=== PATIENT | male | born 1950 | race Caucasian/White ===

== ENCOUNTER 2016-07-11 22:07 | Observation (INO) | payer OTHER, BC ==
[~2016-07-11] VITALS: Ht 172.7 cm; Wt 97.8 kg
--- NOTE | 2016-07-11 23:53 | ED ORDER SUMMARY ---
..... Patient: KAREN BETTENCOURT OrderSheet [facility] VisitID: [id number] [place], [place] [id number] 66y, M Registration Date/Time: 07/11/2016 ORDER SHEET Weight: 98.4 kg (stated) Allergies: Amoxicillin GENERAL ORDERS: UA-Culture if indicated Urgent (22:27 07/11/2016 DBeyer R.N. verbal order read back to Niki Liriano) (Ack 22:33 SRedmond) (22:59 AMcQuoid ER Tech1) CBC w Diff Urgent (22:47 07/11/2016 DBeyer R.N. per protocol) (Ack 22:48 SRedmond) (23:24 SRedmond) CMP Urgent (22:47 07/11/2016 DBeyer R.N. per protocol) (Ack 22:48 SRedmond) (23:24 SRedmond) PT with INR Urgent (22:47 07/11/2016 DBeyer R.N. per protocol) (Ack 22:48 SRedmond) (23:24 SRedmond) Amylase Urgent (22:47 07/11/2016 DBeyer R.N. per protocol) (Ack 22:48 SRedmond) (Cancelled: Duplicate Order23:04 Niki Liriano) Lipase Urgent (22:47 07/11/2016 DBeyer R.N. per protocol) (Ack 22:48 SRedmond) (23:24 SRedmond) US Abdomen Limited (No) Urgent (23:04 07/11/2016 Niki Liriano) (Ack 23:06 SRedmond) (23:49 RFay) MEDICATION ORDERS: GI Cocktail WHITE PO 30 mL (NOW) (23:14 07/11/2016 Niki Liriano) (23:19 DBeyer R.N.) IV FLUIDS: IV Saline Lock (22:47 07/11/2016 DBeyer R.N. per protocol) (22:57 DBeyer R.N.) Zosyn IV 4.5 gm/100mL (NOW) (23:52 07/11/2016 Niki Liriano) (0:08 DBeyer R.N.) Morphine IV 4 mg (HIGH ALERT MEDICATION, NOW) (00:07 07/12/2016 Riri FloodNAlicia verbal order read back to Niki Liriano) (0:07 Riri Melton) ORDER SHEET NOTES: [Electronically signed by Bhavik Garcia Dr. (07:25 07/12/2016)] [Electronically signed by Nigel Chau R.N. (03:20 07/14/2016)] [Electronically locked/signed by Nigel Chau R.N. (03:07/14/2016)]
--- NOTE | 2016-07-11 23:53 | ED NURSING NOTES ---
Clinical Report - Nurses [facility] [address] [place] [address] 07/11/2016 22:07 Patient: KAREN BETTENCOURT TRIAGE Triage time 22:20 Jul 11 2016. Acuity: LEVEL 3. Chief Complaint: ABDOMINAL PAIN. --22:22 Nigel Chau R.N. 22:20 07/11/16. BP: 145/85. HR: 83. RR: 18. O2 saturation: 96%. Temp: 98.1 F. Pain level now 02/09. --22:22 Nigel Chau R.N. Weight: 98.4 kg stated. Height/Length: 68 inches Per Patient. BMI: 33. --22:21 Nigel Chau R.N. Medications Amlodipine. --00:42 Nigel Chau R.N. Allergies Amoxicillin.(rash) --00:42 Nigel Chau R.N. History Arrived by private vehicle. Onset. (3 months). He has had nausea and constipation. 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 SOCIAL HX: Smoker- current status unknown (smokeless). Alcohol use; consumes beer occasionally. No drug use. --22:22 Nigel Chau R.N. Interventions ID band on patient. To treatment room. --22:22 Nigel Chau R.N. PHYSICAL ASSESSMENT GENERAL / NEURO / PSYCH: Alert. Oriented X 4. Appears in no acute distress. RESPIRATORY: Respirations not labored. Breath sounds within normal limits. CVS: Capillary refill less than 2 seconds. GI / : Abdomen nontender. Rebound tenderness diffusely. SKIN: Skin is warm and dry. --22:23 Nigel Chau R.N. NURSING PROGRESS NOTES Pulse oximeter placed on patient. Patient gowned. Call light placed in reach. Side rails up x 1. --22:23 Nigel Chau R.N. 22:57 07/11/2016 Site #1 started via IV in the right antecubital space with an 20g angiocath, with aseptic technique; one attempt. Blood drawn: rainbow set. Labeled in the presence of the patient and sent to the lab. Saline lock flushed with saline. --22:57 Nigle Chau R.N. 23:10 07/11/16. BP: 152/76. HR: 81. O2 saturation: 96%. --23:11 Nigel Chau R.N. 23:19 07/11/2016 GI COCKTAIL WHITE (Simethicone) PO 30 mL given. Allergies verified and confirmed 5 rights. --23:19 Nigel Chau R.N. 23:57 07/11/2016 Morphine IVP 4 mg given over 2 minute(s) via site #1. Allergies verified, confirmed 5 rights and sedative warning given to the patient. IV patency established. IV site checked: no pain, redness, or swelling. IV flushed thoroughly pre- and post-medication administration. IVP given by RN. --00:07 Nigel Chau R.N. 00:08 07/12/2016 Started 4.5 gm of Zosyn (Piperacillin Sod-Tazobactam So) IVPB in bag #1 120 mL; at 120 mL/hr over 1 hour(s) via site #1 via IV pump. Allergies verified and confirmed 5 rights. IV patency established. IV site checked: no pain, redness, or swelling. IV flushed thoroughly pre- and post-medication administration. --00:08 Nigel Chau R.N. DISPOSITION / DISCHARGE Departure time: 00:18 Jul 12 2016. No learning barriers present. Report was given to a nurse via a phone call. Report included patient's care, treatment, medications, reviewed medication reconcilliation, and condition (including any recent changes or anticipated changes). All questions were answered. Report was acknowledged. --00:19 Nigel Chau R.N. 00:18 07/12/16. BP: 144/75. HR: 65. RR: 18. O2 saturation: 97%. Temp: 98.2 F. Pain level now 4/10. --00:19 Nigel Chau R.N. Patient's personal items include: shirt and pants; items were placed in belongings bag. --00:20 Nigel Chau R.N. Departure time: 20. --00:40 Nigel Chau R.N. Locked/Released at 07/14/2016 3:20 by Nigel Chau R.N.
--- NOTE | 2016-07-11 23:53 | ED ORDER SUMMARY ---
..... Patient: KAREN BETTENCOURT OrderSheet [facility] VisitID: [id number] [place], [place] [id number] 66y, M Registration Date/Time: 07/11/2016 ORDER SHEET Weight: 98.4 kg (stated) Allergies: Amoxicillin GENERAL ORDERS: UA-Culture if indicated Urgent (22:27 07/11/2016 DBeyer R.N. verbal order read back to Niki Liriano) (Ack 22:33 SRedmond) (22:59 AMcQuoid ER Tech1) CBC w Diff Urgent (22:47 07/11/2016 DBeyer R.N. per protocol) (Ack 22:48 SRedmond) (23:24 SRedmond) CMP Urgent (22:47 07/11/2016 DBeyer R.N. per protocol) (Ack 22:48 SRedmond) (23:24 SRedmond) PT with INR Urgent (22:47 07/11/2016 DBeyer R.N. per protocol) (Ack 22:48 SRedmond) (23:24 SRedmond) Amylase Urgent (22:47 07/11/2016 DBeyer R.N. per protocol) (Ack 22:48 SRedmond) (Cancelled: Duplicate Order23:04 Niki Liriano) Lipase Urgent (22:47 07/11/2016 DBeyer R.N. per protocol) (Ack 22:48 SRedmond) (23:24 SRedmond) US Abdomen Limited (No) Urgent (23:04 07/11/2016 Niki Liriano) (Ack 23:06 SRedmond) (23:49 RFay) MEDICATION ORDERS: GI Cocktail WHITE PO 30 mL (NOW) (23:14 07/11/2016 Niki Liriano) (23:19 DBeyer R.N.) IV FLUIDS: IV Saline Lock (22:47 07/11/2016 DBeyer R.N. per protocol) (22:57 DBeyer R.N.) Zosyn IV 4.5 gm/100mL (NOW) (23:52 07/11/2016 Niki Liriano) (0:08 DBeyer R.N.) Morphine IV 4 mg (HIGH ALERT MEDICATION, NOW) (00:07 07/12/2016 Riri FloodNAlicia verbal order read back to Niki Liriano) (0:07 Riri Melton) ORDER SHEET NOTES: [Electronically signed by Bhavik Garcia Dr. (07:25 07/12/2016)] [Electronically signed by Nigel Chau R.N. (03:20 07/14/2016)] [Electronically locked/signed by Nigel Chau R.N. (03:07/14/2016)]
--- NOTE | 2016-07-11 23:53 | ED CLINICAL REPORT ---
Clinical Report - Physicians/Mid Levels [facility] [address] [place] [address] 07/11/2016 22:07 Patient: KAREN BETTENCOURT Time Seen: 2247. Arrived- By private vehicle. Historian- patient. HISTORY OF PRESENT ILLNESS Chief Complaint: ABDOMINAL PAIN. This started today and is still present and worsening. It was abrupt in onset and has been constant but is not gone now. At its maximum, severity described as moderate. When seen in the E.D., severity described as moderate. Modifying factors- worsened by food. Relieved by rest. It is described as sharp. No radiation. It is described as located in the epigastric area. The patient has had nausea. No loss of appetite, vomiting or diarrhea. No additional abdominal pain. (strong family history of gallbladder pathology with the mother and father both having their gallbladders removed.). No recent travel. Similar symptoms previously: Several times. ( Over the past several months). Recent medical care: Not recently seen/assessed. REVIEW OF SYSTEMS No black stools, hematemesis, bloody stools, fever or skin rash. All systems otherwise negative, except as recorded above. PAST HISTORY See nurses notes. SOCIAL HISTORY Never smoker. No alcohol use or drug use. No recent travel. Is a local resident. FAMILY HISTORY History of gall bladder problems. ADDITIONAL NOTES The nursing notes have been reviewed. PHYSICAL EXAM Vital Signs: 07/11/2016 22:20 BP: 145/85. HR: 83. RR: 18. O2 saturation: 96%. Temp: 98.1 F. Oxygen saturation normal. Appearance: Alert. Oriented X3. Patient in mild distress. Eyes: Pupils equal, round and reactive to light. Eyes normal inspection. CVS: Normal heart rate and rhythm. Heart sounds normal. Pulses normal. Respiratory: No respiratory distress. Breath sounds normal. Chest nontender. No rales, rhonchi or wheezes. Abdomen: Soft. Mild tenderness in the epigastric area. Bowel sounds normal. No organomegaly. No mass. (Negative Causey's. No tenderness at McBurney's. No rebound or guarding.). Skin: Skin warm and dry. Normal skin color. No rash. Normal skin turgor. Extremities: Extremities exhibit normal ROM. No lower extremity edema. Neuro: Oriented X 3. No motor deficit. No sensory deficit. LABS, X-RAYS, AND EKG Abdominal Sonogram: Gallstones are present. Gallbladder wall thickening is present. Pericholecystic fluid is present. (Acute cholecystitis). No dilated common duct. The study was independently viewed by me and interpreted contemporaneously by me. Study included the gallbladder. Prior studies were not available for comparison. Laboratory Tests: UA-Culture if indicated: (MORELIA: 07/11/2016 22:16) ( MsgRcvd 07/11/2016 22:43) Final results Test Result Flag Units (Reference) URINE COLOR YELLOW URINE APPEARANCE CLEAR URINE GLUCOSE NEGATIVE (NEGATIVE) URINE BILIRUBIN NEGATIVE (NEGATIVE) URINE KETONE NEGATIVE (NEGATIVE) URINE SPECIFIC GRAVITY 1.025 (1.010-1.030) URINE PH 6.0 (5.0-8.0) URINE PROTEIN NEGATIVE (NEGATIVE) URINE UROBILINOGEN 0.2 EU/dL (0.2-1.0) URINE NITRITE NEGATIVE (NEGATIVE) URINE BLOOD TRACE-INTACT (NEGATIVE) URINE LEUK ESTERASE NEGATIVE (NEGATIVE) URINE RBC 0-1 rbc/hpf (0-1) URINE WBC RARE wbc/hpf (0-1) URINE EPITHELIAL CELLS NONE SEEN EPI/hpf (0-5) URINE BACTERIA NONE SEEN (NONE SEEN) URINE COMMENT CULT NOT INDICATED 1+ MUCUSURINE CULTURES ARE SET-UP BASED ON THE FOLLOWING CRITERIA:POSITIVE NITRITEPOSITIVE LEUKOCYTE ESTERASEGREATER THAN 10 WHITE BLOOD CELLSMODERATE (2+) OR GREATER BACTERIA CBC w Diff: (MORELIA: 07/11/2016 22:53) ( MsgRcvd 07/11/2016 23:04) Final results Test Result Flag Units (Reference) WHITE BLOOD COUNT 12.1 H K/uL (4.5-11.5) RED BLOOD COUNT 5.12 M/uL (4.50-5.90) HEMOGLOBIN 14.4 gm/dL (13.5-17.5) HEMATOCRIT 43.3 % (41.0-53.0) MEAN CELL VOLUME 85 fL (80-100) MEAN CORPUSCULAR HGB 28 pg (26-34) MEAN CORPUSCULAR HGB CONC 33 g/dL (31-37) RED CELL DISTRIBUTION WIDTH 13.0 % (11.6-14.8) PLATELET COUNT 253 K/uL (150-400) NEUTROPHIL % 76.4 H % (50-75) LYMPH % 14.0 L % (25-40) MONO % 8.2 % (3-14) EOSINOPHIL % 1.1 % (0-4) BASOPHIL % 0.3 % (0-2) PT with INR: (MORELIA: 07/11/2016 22:53) ( [facility] 07/11/2016 23:15) Final results Test Result Flag Units (Reference) INR 1.0 (0.8-1.2) Low Intensity Therapy: INR 1.5-2.0 PT range 18.5-23.1Mod.Intensity Therapy: INR 2.0-3.0 PT range 23.1-31.5High Intensity Therapy: INR 2.5-3.5 PT range 27.4-35.5High Intensity Therapy 2: INR 3.0-4.0 PT range 31.5-39.3 CMP: (MORELIA: 07/11/2016 22:53) ( [facility] 07/11/2016 23:22) Final results Test Result Flag Units (Reference) GLUCOSE 150 H mg/dL (70-110) BUN 15 mg/dL (7-18) CREATININE 1.1 mg/dL (0.6-1.3) Estimated GFR >60 mL/min Estimated GFR- >60 mL/min Note: Persistent reduction over 3 months in eGFR<60 mL/min/1.73 m2 defines CKD. Patients with eGFR values>=60 mL/min/1.73 m2 may also have CKD if evidence ofpersistent proteinuria. Additional information may be foundat www.kidney.org. SODIUM 140 mmol/L (136-145) POTASSIUM 3.6 mmol/L (3.5-5.1) CHLORIDE 102 mmol/L (98-107) CARBON DIOXIDE 26 mmol/L (21-32) CALCIUM 9.1 mg/dL (8.5-10.1) TOTAL PROTEIN 8.1 g/dL (6.4-8.2) ALBUMIN 3.7 g/dL (3.3-5.0) BILIRUBIN, TOTAL 0.9 mg/dL (0.0-1.0) ALKALINE PHOSPHATASE 86 U/L (46-116) AST (SGOT) 23 U/L (15-37) ALT (SGPT) 35 U/L (12-78) LIPASE 126 U/L (73-393) AMYLASE 27 U/L (25-115) . Pulse Oximetry: 07/12/2016 00:18 O2 saturation: 97%. 07/11/2016 23:10 O2 saturation: 96%. 07/11/2016 22:20 O2 saturation: 96%. Interpretation: normal. PROGRESS AND PROCEDURES Course of Care: the patient is a pleasant 66-year-old male with no pertinent past medical history presenting for a vaginal epigastric abdominal pain. At this time differential diagnosis includes acute cholecystitis, biliary colic,acute pancreatitis,urinary tract infection,or gastritis. Patient will be given a GI cocktail for possible gastritis. Patient is agreeable to the treatment plan. Ultrasound and laboratory studies have been ordered. Workup was remarkable for ultrasound signs and symptoms that are consistent with acute biliary pathology. Head discussion with patient in regards to hisfindings here in the emergency department. Patient is agreeable to surgicalremoval of the gallbladder. Surgery was contacted. Patient will beadmitted to the hospital. No further recommendations made by general surgery. Antibioticsprovided. Discussed with patient workup, and plan of care as well as diagnosis. All questions have been answered. The patient was admitted. Oli patient's departure from the emergency department he is noted benontoxic in appearance. Patient is stable forfloor placement. Do not feel patient needs intensive care unit level ofplacement. Critical care performed (35 minutes). Time includes: direct patient care, patient reassessment, coordination of patient care, interpretation of data (laboratory data), review of patient's medical records, medical consultation, family consultation regarding treatment decisions and documentation of patient care. Consult obtained. Disposition: Observation in Acute Care. CLINICAL IMPRESSION 07/12/2016 00:18 BP: 144/75. HR: 65. RR: 18. O2 saturation: 97%. Temp: 98.2 F. Oxygen saturation normal. Acute cholecystitis. (Electronically signed by Bhavik Garcia Dr. 07/12/2016 7:25)
--- NOTE | 2016-07-11 23:53 | ED NURSING NOTES ---
Clinical Report - Nurses [facility] [address] [place] [address] 07/11/2016 22:07 Patient: KAREN BETTENCOURT TRIAGE Triage time 22:20 Jul 11 2016. Acuity: LEVEL 3. Chief Complaint: ABDOMINAL PAIN. --22:22 Nigel Chau R.N. 22:20 07/11/16. BP: 145/85. HR: 83. RR: 18. O2 saturation: 96%. Temp: 98.1 F. Pain level now 02/09. --22:22 Nigel Chau R.N. Weight: 98.4 kg stated. Height/Length: 68 inches Per Patient. BMI: 33. --22:21 Nigel Chau R.N. Medications Amlodipine. --00:42 Nigel Chau R.N. Allergies Amoxicillin.(rash) --00:42 Nigel Chau R.N. History Arrived by private vehicle. Onset. (3 months). He has had nausea and constipation. 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 SOCIAL HX: Smoker- current status unknown (smokeless). Alcohol use; consumes beer occasionally. No drug use. --22:22 Nigel Chau R.N. Interventions ID band on patient. To treatment room. --22:22 Nigel Chau R.N. PHYSICAL ASSESSMENT GENERAL / NEURO / PSYCH: Alert. Oriented X 4. Appears in no acute distress. RESPIRATORY: Respirations not labored. Breath sounds within normal limits. CVS: Capillary refill less than 2 seconds. GI / : Abdomen nontender. Rebound tenderness diffusely. SKIN: Skin is warm and dry. --22:23 Nigel Chau R.N. NURSING PROGRESS NOTES Pulse oximeter placed on patient. Patient gowned. Call light placed in reach. Side rails up x 1. --22:23 Nigel Chau R.N. 22:57 07/11/2016 Site #1 started via IV in the right antecubital space with an 20g angiocath, with aseptic technique; one attempt. Blood drawn: rainbow set. Labeled in the presence of the patient and sent to the lab. Saline lock flushed with saline. --22:57 Nigel Chau R.N. 23:10 07/11/16. BP: 152/76. HR: 81. O2 saturation: 96%. --23:11 Nigel Chau R.N. 23:19 07/11/2016 GI COCKTAIL WHITE (Simethicone) PO 30 mL given. Allergies verified and confirmed 5 rights. --23:19 Nigel Chau R.N. 23:57 07/11/2016 Morphine IVP 4 mg given over 2 minute(s) via site #1. Allergies verified, confirmed 5 rights and sedative warning given to the patient. IV patency established. IV site checked: no pain, redness, or swelling. IV flushed thoroughly pre- and post-medication administration. IVP given by RN. --00:07 Nigel Chau R.N. 00:08 07/12/2016 Started 4.5 gm of Zosyn (Piperacillin Sod-Tazobactam So) IVPB in bag #1 120 mL; at 120 mL/hr over 1 hour(s) via site #1 via IV pump. Allergies verified and confirmed 5 rights. IV patency established. IV site checked: no pain, redness, or swelling. IV flushed thoroughly pre- and post-medication administration. --00:08 Nigel Chau R.N. DISPOSITION / DISCHARGE Departure time: 00:18 Jul 12 2016. No learning barriers present. Report was given to a nurse via a phone call. Report included patient's care, treatment, medications, reviewed medication reconcilliation, and condition (including any recent changes or anticipated changes). All questions were answered. Report was acknowledged. --00:19 Nigel Chau R.N. 00:18 07/12/16. BP: 144/75. HR: 65. RR: 18. O2 saturation: 97%. Temp: 98.2 F. Pain level now 4/10. --00:19 Nigel Chau R.N. Patient's personal items include: shirt and pants; items were placed in belongings bag. --00:20 Nigel Chau R.N. Departure time: 20. --00:40 Nigel Chau R.N. Locked/Released at 07/14/2016 3:20 by Nigel Chau R.N.
[2016-07-12] VITALS (12 sets, daily range): BP systolic 103–157; BP diastolic 61–82
--- NOTE | 2016-07-12 00:08 | DIAGNOSTIC IMAGING REPORT ---
PROCEDURE: US ABDOMEN ULTRASOUND-LIMITED INDICATION: EPIGASTRIC ABDO PAIN, initial encounter TECHNIQUE: Udbon scale and color Doppler sonographic images of the abdomen were obtained. COMPARISON: None. FINDINGS: Enlarged gallbladder (10 cm) completely filled with sludge. There are several calculi including some lodged in the neck. Gallbladder wall is difficult to visualize but appears to be second (5.7 mm) associated with pericholecystic fluid and wall hyperemia. There is positive Causey's sign. CBD measures 8.9 mm. The liver measures 17.9 cm with diffuse increased echogenicity. Right kidney measures 11 cm. IMPRESSION: 1. Enlarged gallbladder filled with sludge. There are some gallstones lodged in the neck, associated with inflammatory changes, biliary obstruction and a positive Causey's sign. Findings are consistent with acute cholecystitis. 2. Hepatic steatosis versus intrinsic liver disease.
--- NOTE | 2016-07-12 00:38 | NUR ---
ADMITTED FROM ED PER MAUREEN ACCOMPANIED BY AND STAFF, IV ZOXYN INFUSING TO RAC PERIPHERAL LINE.ABLE TO TRANSFER INDEPENDENTLY TO BED. STATES PAIN 9/10 RUQ SHARP PAIN, DENIES NAUSEA.
[2016-07-12] MEDS ORDERED: AMLODIPINE BESY10 MG PO (01:59)
--- NOTE | 2016-07-12 04:20 | NUR ---
C/O 10/10 SHARP RUQ ABDOMINAL PAIN WITH NAUSEA. PRN MEDS GIVEN.
--- NOTE | 2016-07-12 09:00 | NUR ---
VERY PAINFUL ABD, 02/09. MEDICATED WITH DEMEROL WITH PT ABLE TO FALL ASLEEP FOR A SHORT WHILE. NPO.
--- NOTE | 2016-07-12 11:19 | NUR ---
PT ID AND PROCEDURE CONFIRMED UPON ARIVAL TO THE PREOP AREA. RT ARM TUCKED AT PTS SIDE AND PADDED WITH EGG CRATE FOAM.
--- NOTE | 2016-07-12 12:57 | NUR ---
REC'D FROM OR; SPONT RESP. HOB ELEVATED 30 DEGREES. JEANNIE WITH MOD AMT OF RED DRAINAGE.
--- NOTE | 2016-07-12 13:11 | DIAGNOSTIC IMAGING REPORT ---
PROCEDURE: XR INTRAOPERATIVE LAP SHASHI INDICATION: LAP SHASHI WITH IOC TECHNIQUE: Intraoperative fluoroscopy provided for Dr. Diez performing an intraoperative cholangiogram following cholecystectomy. Total fluoroscopy time 11 seconds. Cumulative dose 5.0 mGy. COMPARISON: Abdominal ultrasound 07/11/2016 FINDINGS: A single intraoperative fluoroscopic spot image of the right upper quadrant of the abdomen demonstrates cannulation of the cystic duct stump and opacification of the intrahepatic and extrahepatic biliary tree. There are no filling defects. There is normal passage of contrast into the duodenum. IMPRESSION: 1. Negative intraoperative cholangiogram.
--- NOTE | 2016-07-12 13:14 | NUR ---
FAMILY VISITING; JEANNIE EMPTIED FOR 20ML OF RED BLOOD. AWAKE AND AWARE.
--- NOTE | 2016-07-12 15:08 | OPERATIVE REPORT ---
DATE OF SURGERY: 07/12/2016 SURGEON: Jaleel Diez III, MD RECORDER HELPER SEISMOGRAPH: None. PREOPERATIVE DIAGNOSIS: 1. Acute cholecystitis, cholelithiasis POSTOPERATIVE DIAGNOSIS: 1. Acute cholecystitis, cholelithiasis (gangrenous cholecystitis) PROCEDURE PERFORMED: 1. Laparoscopic cholecystectomy with fluoroscopic intraoperative cholangiogram ANESTHESIA: TIVA. ESTIMATED BLOOD LOSS: 100 mL. FLUIDS: 700 mL lactated Ringers. PATHOLOGY SPECIMEN: Gallbladder and contents. INDICATIONS: The patient is a 66-year-old male with severe right upper quadrant abdominal pain whose white count was 12.1. Ultrasound: Thickened gallbladder, stones in the neck of the gallbladder. Positive Causey sign on physical examination, and scheduled for urgent surgery. SURGICAL FINDINGS: The patient was noted to have acute gangrenous cholecystitis, cholelithiasis, with a normal intraoperative cholangiogram. Free flow of contrast material into the duodenum. Visualization of hepatic radicles, hepatic duct, and common bile duct, no evidence of retained stone. SURGICAL TECHNIQUE: The patient was brought to the operating room and placed in the dorsal supine position, where he underwent general endotracheal anesthesia by the anesthesiology department. After proper anesthesia had taken effect, the patient 's abdomen was prepped using Betadine and draped in a sterile fashion. An infraumbilical incision was made, carried down through skin and subcutaneous tissue. A Veress needle was inserted through this site, into the abdominal cavity, and after ascertaining its appropriate position with suction irrigation, pneumoperitoneum was obtained using CO2 insufflation to approximately 14-15 mmHg pressure. Once this pressure was reached, the Veress needle was removed and replaced with a 10 mm trocar. The trocar removed, leaving the sleeve behind, through which a laparoscopic video camera was introduced into the abdominal cavity. Under direct visualization, a separate 10 mm trocar was placed in the subxiphoid region, two 5 mm trocars were placed in the right anterolateral abdominal wall, approximately 3-4 fingerbreadths below the costal margin. Each entered the abdominal cavity under direct visualization. The trocars were removed, leaving the sleeves behind, through which laparoscopic instrumentation was introduced into the abdominal cavity. The omentum was firmly adherent to the gallbladder. It was very carefully peeled off the gallbladder. The gallbladder was quite distended and drained percutaneously, allowing us a chance to purchase our grasper onto the gallbladder and retracting it cephalad. We were able then to take further adhesions to the anterior wall of gallbladder down using a combination of blunt dissection and hydrodissection. We were able then to circumferentially isolate the cystic duct using a combination of hydrodissection and blunt dissection. A clip was placed at the junction of the neck of the gallbladder and the cystic duct. A percutaneous cholangiogram catheter was threaded through the anterior abdominal wall. A small incision was made in the anterior surface of the cystic duct, where the percutaneous cholangiogram catheter was threaded into the cystic duct, clipped into position, and a fluoroscopic intraoperative cholangiogram obtained, with the aforementioned findings noted. Once completed, the percutaneous cholangiogram catheter was retrieved from the cystic duct and the abdominal cavity. The distal cystic duct was clipped in continuity. The cystic artery was identified, clipped in continuity, divided, and the gallbladder taken down from its thickened and adherent the gallbladder bed. We were able then to free the gallbladder completely, place it in a sterile specimen container bag and retrieve it from the abdominal cavity and sent it to pathology. The gallbladder bed was inspected for hemostasis. Hemostasis was assured. The right upper quadrant was irrigated copiously with warm normal saline and antibiotic solution and the irrigant suctioned out. A 10 mm Walter-Stevens drain was placed in the area of the bed of the gallbladder and Morison pouch and brought out through our most dependent trocar site and securing it using 3-0 nylon. The gallbladder drain tubing was trimmed to length and attached to a bulb with a suction. The abdominal cavity pneumoperitoneum was released and all trocars were removed from the abdominal cavity. All trocar sites approximated using 4-0 subdermal Polysorb and Steri-Strips. A sterile pressure occlusive dressings was placed over each site. The patient tolerated the procedure well, was extubated and transferred to the recovery room in stable condition. There were no intraoperative or anesthetic complications.
--- NOTE | 2016-07-12 15:54 | CONSULTATION REPORT ---
DATE OF CONSULTATION: 07/12/2016 CHIEF COMPLAINT: 1. Right upper quadrant abdominal pain HISTORY OF PRESENT ILLNESS: The patient is a 66-year-old male who presented to the emergency room, evaluated and admitted to [facility] by Dr. Holt with suspected symptomatic cholelithiasis. I was able to questions the patient, and he was complaining of severe and unrelenting right upper quadrant pain radiating into his back, not associated with nausea and vomiting. The patient had an ultrasound in the emergency department which showed an enlarged gallbladder with stones in the neck of the gallbladder, thickened gallbladder wall, and a positive Causey sign. MEDICAL/SURGICAL HISTORY: The patient is status post L4-5 diskectomy. He has had a neuroma removed, bilateral feet. He has also had surgery for a right plantar fasciitis. He carries a diagnosis of hypertension. MEDICATIONS: 1. Amlodipine 10 mg at bedtime. ALLERGIES: 1. NONE. SOCIAL HISTORY: , 1 daughter alive and well. The patient does not smoke, but he does chew a can of tobacco, 1 every 2 days. Drinks alcohol socially. Does not use recreational drugs. 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 FAMILY HISTORY: Mother at age 64 of myocardial infarction. Father at age 85 of lung cancer. The patient has a sister who is from pancreatic carcinoma. REVIEW OF SYSTEMS: No history of hepatitis, jaundice, rheumatic fever, blood transfusion, heart murmurs requiring antibiotics, bleeding tendencies. The patient's remaining 12-point review of systems is negative. PHYSICAL EXAMINATION: GENERAL: The patient is awake and alert, in [id number] discomfort. He is conversant. VITAL SIGNS: Blood pressure is 131/82, pulse 76, respirations 18, temperature is 98.2. HEENT: Normocephalic, atraumatic. Pupils equal and reactive. No scleral icterus. External auditory canals clear. No nasal septal defect or discharge. Throat is clear. Moist mucous membranes. NECK: Supple. No JVD, carotid bruit or adenopathy. LUNGS: Clear. No rales, rhonchi, or wheezing. HEART: Regular rhythm. No murmurs. ABDOMEN: Nondistended. Hypoactive bowel sounds. The patient is tender in the right upper quadrant, positive Causey sign. EXTREMITIES: Full range of motion. No pretibial ankle edema. LYMPHATICS: No cervical, supraclavicular, axillary, or groin adenopathy. SKIN: Warm and dry with no peripheral cyanosis. NEUROLOGIC: The patient is grossly intact, with no focal motor neurological deficits. LAB/IMAGING: White count 12.1, hemoglobin and hematocrit 14.4 and 43.3 respectively. Electrolytes: Sodium 140, potassium 3.6, chloride 102, bicarbonate 26, glucose 150, BUN 15, creatinine 1.1, total bilirubin 0.9, alkaline phosphatase 86, lipase 126. IMPRESSION: Acute cholecystitis PLAN: Laparoscopic cholecystectomy. The procedure has been explained to the patient and his , who was present, including the potential risk of conversion to open procedure, hemorrhage, transfusion, major ductal damage, retained stone, bile leak, damage to local structures to include small bowel, stomach, damage/transection to the major ductal system, pneumonia, pulmonary embolus. The patient understands and agrees to proceed. At this point, all questions answered to his satisfaction.
--- NOTE | 2016-07-12 17:38 | NUR ---
RETURNED FROM SURGERY THIS AFTERNOON. UP IN CHAIR FROM STRETCHER. PT STATES "SORENESS" 0.5/10. UP AMBULATING IN HALLS. TOLERATING CLEAR LIQUIDS WELL. NO NAUSEA. UMBILICAL DRESSING LEAKING. DRESSING REINFORCED. JEANNIE DRAINGING BLOODY DRAINAGE, SMALL AMOUNTS.
--- NOTE | 2016-07-12 19:47 | NUR ---
SITTING ON BEDSIDE CHAIR STATES DISCOMFORT 1/10 AT THIS TIME, TOLERATING CLEAR LIQUIDS. FAMILY AT BEDSIDE.
--- NOTE | 2016-07-12 20:02 | NUR ---
AMBULATING IN HALLWAY ACCOMPANIED BY FAMILY MEMBERS.
[2016-07-13 02:03] VITALS: BP 100/62
--- NOTE | 2016-07-13 05:13 | NUR ---
ABDOMINAL TROCAR SITES DRESSINGS REMAINS DRY AND INTACT, STATES DISCOMFORT 05/12. VERBALIZED HAVING FLATUS, TOLERATING CLEAR LIQUIDS.
[2016-07-13] MEDS ORDERED: HYCET1 ML PO (06:57)
[2016-07-13 06:59] VITALS: BP 121/65
--- NOTE | 2016-07-13 06:59 | Provider's Discharge Care Plan ---
Problem, Goal, Plan Problem List 1. S/P laparoscopic cholecystectomy Goals: Improve disease control, Therapeutic intervention Instructions: Follow up as directed, Take meds as directed, JEANNIE drain care instructions
--- NOTE | 2016-07-13 09:45 | NUR ---
GAVE PT HIS DISCHARGE INFORMATION AND ANSWERED QUESTIONS TO HIS SATISFACTION. PT WAS GIVEN 1 PRESCRIPTION. IV WAS TAKEN OUT INTACT. PT WAS WALKED DOWN TO PRIVATE VEHICLE BY THIS RN.
--- NOTE | 2016-07-14 03:21 | ED MAR SUMMARY ---
..... Medication Administration Record [facility] [address] [place] [place] [address] Patient: KAREN BETTENCOURT Visit ID: [id number] 66y, M Weight: 98.4 kg Height/Length: 68 in BMI: 33 ALLERGIES: Amoxicillin Given 23:19 07/11/2016 Nigel Chau RAliciaNAlicia Medication Administered: GI COCKTAIL WHITE [PO] (SIMETHICONE), Dose: 30 mL PO. Medication Ordered: GI Cocktail WHITE PO 30 mL (NOW). Given 23:57 07/11/2016 Nigel Chau RAliciaNAlicia Medication Administered: MORPHINE [IVP], Dose: 4 mg IVP over 2 minute(s), Site: #1 right AC. Medication Ordered: Morphine IV 4 mg (HIGH ALERT MEDICATION, NOW). Start 00:08 07/12/2016 Nigel Chau, RAliciaN. Medication Administered: ZOSYN [IVPB] (PIPERACILLIN SOD-TAZOBACTAM SO), Dose: 4.5 gm IVPB over 1 hour(s), Rate: 120 mL/hr, Dispensed: 120 mL bag, Site: #1 right AC. Medication Ordered: Zosyn IV 4.5 gm/100mL (NOW).
--- NOTE | 2016-07-14 03:21 | ED DISCHARGE INSTRUCTIONS ---
Patient: KAREN BETTENCOURT General Instructions [facility] VisitID: [id number] [address] [place] [address] 66y, M Registration Date/Time: 07/11/2016 07/12/2016 00:18 BP: 144/75. HR: 65. RR: 18. O2 saturation: 97%. Temp: 98.2 F. Oxygen saturation normal. Acute cholecystitis. (Electronically signed by Bhavik Garcia Dr. 07/12/2016 7:25)
--- NOTE | 2016-07-14 03:21 | ED MAR SUMMARY ---
..... Medication Administration Record [facility] [address] [place] [address] Patient: KAREN BETTENCOURT Visit ID: [id number] 66y, M Weight: 98.4 kg Height/Length: 68 in BMI: 33 ALLERGIES: Amoxicillin Given 23:19 07/11/2016 Nigel Chau RAliciaNAlicia Medication Administered: GI COCKTAIL WHITE [PO] (SIMETHICONE), Dose: 30 mL PO. Medication Ordered: GI Cocktail WHITE PO 30 mL (NOW). Given 23:57 07/11/2016 Nigel Chau RAliciaNAlicia Medication Administered: MORPHINE [IVP], Dose: 4 mg IVP over 2 minute(s), Site: #1 right AC. Medication Ordered: Morphine IV 4 mg (HIGH ALERT MEDICATION, NOW). Start 00:08 07/12/2016 Nigel Chau, RAliciaN. Medication Administered: ZOSYN [IVPB] (PIPERACILLIN SOD-TAZOBACTAM SO), Dose: 4.5 gm IVPB over 1 hour(s), Rate: 120 mL/hr, Dispensed: 120 mL bag, Site: #1 right AC. Medication Ordered: Zosyn IV 4.5 gm/100mL (NOW).
--- NOTE | 2016-07-14 03:21 | ED DISCHARGE INSTRUCTIONS ---
Patient: KAREN BETTENCOURT General Instructions [facility] VisitID: [id number] [address] [place] [address] 66y, M Registration Date/Time: 07/11/2016 07/12/2016 00:18 BP: 144/75. HR: 65. RR: 18. O2 saturation: 97%. Temp: 98.2 F. Oxygen saturation normal. Acute cholecystitis. (Electronically signed by Bhavik Garcia Dr. 07/12/2016 7:25)
--- NOTE | 2016-07-14 03:21 | ED MED RECONCILIATION SUMMARY ---
Patient: KAREN BETTENCOURT Medication Reconciliation Report [facility] VisitID: [id number] [address] [place] [address] 66y, M Registration Date/Time: 07/11/2016 Weight: 98.4 kg Height/Length: 68 in. BMI: 33.0 ALLERGIES: Amoxicillin The patient's Home Medications are listed below: THE FOLLOWING MEDICATIONS NEED TO BE RECONCILED: Amlodipine The source(s) of the original Home Medication information: Not obtained. The following Medications were given to the patient in the Emergency Department: GI COCKTAIL WHITE [PO] PO 30 mL, administered: 07/11/2016 11:19:00 PM Morphine [IVP] IVP 4 mg, administered: 07/11/2016 11:57:00 PM Zosyn [IVPB] IVPB bolus 0, then 4.5 gm 120 mL/hr, administered: 07/12/2016 12:08:00 AM The following Medications were prescribed to the patient: None.
--- NOTE | 2016-07-14 03:21 | ED MED RECONCILIATION SUMMARY ---
Patient: KAREN BETTENCOURT Medication Reconciliation Report [facility] VisitID: [id number] [address] [place] [address] 66y, M Registration Date/Time: 07/11/2016 Weight: 98.4 kg Height/Length: 68 in. BMI: 33.0 ALLERGIES: Amoxicillin The patient's Home Medications are listed below: THE FOLLOWING MEDICATIONS NEED TO BE RECONCILED: Amlodipine The source(s) of the original Home Medication information: Not obtained. The following Medications were given to the patient in the Emergency Department: GI COCKTAIL WHITE [PO] PO 30 mL, administered: 07/11/2016 11:19:00 PM Morphine [IVP] IVP 4 mg, administered: 07/11/2016 11:57:00 PM Zosyn [IVPB] IVPB bolus 0, then 4.5 gm 120 mL/hr, administered: 07/12/2016 12:08:00 AM The following Medications were prescribed to the patient: None.
== END 2016-07-13 09:50 | disposition home or self-care (01) ==
LOC: ED SRH 22:07 → TRANS SRH 07-12 00:03 → CC SRH 07-12 00:03
PROVIDERS: Specialist; ADMIT Surgery
PROC: BF101ZZ Fluoroscopy of Bile Ducts using Low Osmolar Contrast (ICD-10-PCS; principal; 2016-07-12 11:00)
PROC: 0FT44ZZ Resection of Gallbladder, Percutaneous Endoscopic Approach (ICD-10-PCS; principal; 2016-07-12 11:00)
DX: K80.00 Calculus of gallbladder with acute cholecystitis without obstruction (principal); I10 Essential (primary) hypertension; F17.220 Nicotine dependence, chewing tobacco, uncomplicated
CPT/HCPCS: 29229; 29253; 29259; 29264; 50002; 60001; 70002; 80102; 80248; 80813; 82669; 82794; 82807; 83338; 83339; 83348; 83587; 83920; 83937; 83982; 84038; 84044; 90004; 90074; 90100; 92132; 92235; 92520; 92530; 92540; 94060; 95059